=== PATIENT | female | born 1985 | race Caucasian/White ===

== ENCOUNTER 2017-04-29 07:25 | Inpatient (IN) | payer BC ==
[2017-04-29] MEDS ORDERED: Misoprostol TAB* 100 MCG ONE ×3 (09:05→14:19)
[2017-04-29 19:11] LABS: Hematocrit 34 % (35-47); Hemoglobin 11.5 g/dl (12.0-16.0); Mean Corpuscular HGB Conc 34 g/dl (31-36); Mean Corpuscular Hemoglobin 32 pg (27-31); Mean Corpuscular Volume 93 fL (80-97); Mean Platelet Volume 9 um3 (7.4-10.4); Red Blood Count 3.62 10^6/ul (4.0-5.4); Red Cell Distribution Width 13 % (10.5-15)
[2017-04-29] MEDS: Oxytocin in LR* 20 UNITS/1,000 ML BAG IVPB SCH (19:47)
[2017-04-30] MEDS: Oxytocin in LR* 20 UNITS/1,000 ML BAG IVPB SCH (08:19)
[2017-04-30] MEDS ORDERED: Oxytocin in LR* 20 UNITS/1,000 ML BAG IVPB SCH ×2 (09:00→15:00)
[2017-04-30] MEDS ORDERED: fentaNYL* 50 MCG/ML 2 ML VIAL (100 MCG VIAL) ONE (10:58)
[2017-04-30] MEDS: fentaNYL* 50 MCG/ML 2 ML VIAL (100 MCG VIAL) IV SLOW PU ONE ×2 (11:03→12:21)
[2017-04-30] MEDS ORDERED: fentaNYL* 50 MCG/ML 2 ML VIAL (100 MCG VIAL) IV SLOW PU ONE (12:20)
[2017-04-30] MEDS ORDERED: OBEPIDURAL* 250 ML ONE (13:36)
[2017-04-30] MEDS ORDERED: Phenylephrine IV* 40 MCG/ML 10 ML SYRINGE IV PUSH PRN (14:06)
[2017-04-30] MEDS ORDERED: EPHEDrine (Pressors)* 50 MG/ML VIAL IV PUSH PRN (14:06)
[2017-04-30] MEDS ORDERED: Famotidine TAB* 20 MG PO PRN (14:06)
[2017-04-30] MEDS ORDERED: Sodium Citrate/Citric Acid* 15 ML UDC PO PRN (14:06)
[2017-04-30] MEDS ORDERED: OBEPIDURAL* 250 ML EPIDURAL SCH (15:00)
[2017-05-01] MEDS ORDERED: Dibucaine 1% 28.35 GM TUBE PR PRN (02:58)
[2017-05-01] MEDS ORDERED: Misoprostol TAB* 200 MCG PR ONE (02:58)
[2017-05-01] MEDS ORDERED: Witch Hazel PAD* JAR TOPICAL PRN (02:58)
[2017-05-01] MEDS ORDERED: Acetaminophen TAB* 325 MG PO PRN (02:58)
[2017-05-01] MEDS ORDERED: Glycerin ADULT SUPP PR PRN (02:58)
[2017-05-01] MEDS ORDERED: Oxytocin in LR* 20 UNITS/1,000 ML BAG IVPB SCH (03:00)
[2017-05-01] MEDS ORDERED: Ammonia Inhalant* 1 EA AMP ONE ×2 (06:32→09:08)
[2017-05-01] MEDS: Ibuprofen TAB* 600 MG PO PRN ×4 (06:38→23:47)
[2017-05-01] MEDS ORDERED: Simethicone TAB* 80 MG TAB.CHEW PO SCH (08:30)
[2017-05-01] MEDS: Docusate CAP* 100 MG PO SCH ×2 (14:14→20:45)
--- NOTE | 2017-05-01 16:20 | PN ---
Progress Note - Progress Note Date of Service: 05/01/17 Note: Procedure note: Procedure: repair of 3rd degree perineal laceration. This patient's labor was managed by midwives. She had very slow progress as she needed induction postdates. The patient delivered vaginally. Ms. Miguel CNM contacted me after delivery of the infant and placenta to assist with the perineal repair. A thorough examination was performed including a rectal examination. On exam, the external anal sphincter was completely disrupted, but the internal sphincter was intact. There did not appear to be any rectal mucosa involved, but the skin had down to the anus. The area was cleaned with betadine. Additional 1% lidocaine, about 10cc, was injected. The anal sphincter ends were both identified and grasped with Allis clamps. An end-to-end sphincteroplasty with 2-0 Polysorb interrupted stitches was performed. There was also a right sulcus extension of the perineal lac and a laceration of the left introitus from the adjacent posterior vaginal mucosa. 3-0 Velosorb was used to restore the anatomy, reapproximate the 2nd degree perineal lac, and close the sulcus lac. Some of the perineal skin was also closed with 4-0 Velosorb interrupted stitches. There appeared to then be good reapproximation. Rectal exam was repeated to ensure this. Pt tolerated very well. EBL during laceration was about 100cc.
[2017-05-02 07:59] VITALS: BP 101/53
[2017-05-02] MEDS: Ibuprofen TAB* 600 MG PO PRN ×2 (08:02→14:09)
[2017-05-02] MEDS: Docusate CAP* 100 MG PO SCH ×2 (08:02→14:09)
[2017-05-02 08:40] LABS: Hematocrit 23 % (35-47); Hemoglobin 7.8 g/dl (12.0-16.0); Mean Corpuscular HGB Conc 34 g/dl (31-36); Mean Corpuscular Hemoglobin 32 pg (27-31); Mean Corpuscular Volume 94 fL (80-97); Mean Platelet Volume 9 um3 (7.4-10.4); Red Blood Count 2.49 10^6/ul (4.0-5.4); Red Cell Distribution Width 14 % (10.5-15); White Blood Count 12.1 10^3/ul (3.5-10.8)
[2017-05-02] MEDS ORDERED: Ferrous Gluconate TAB* 324 MG TAB PO SCH (09:00)
== END 2017-05-02 15:40 | disposition home or self-care (01) | DRG 560 ==
LOC: MCHOBOUT 07:25 → MCHOB 14:49
PROVIDERS: ADMIT Midwife; ATTEND Midwife
PROC: 10E0XZZ Delivery of Products of Conception, External Approach (ICD-10-PCS; principal; 2017-05-01)
PROC: 3E033VJ Introduction of Other Hormone into Peripheral Vein, Percutaneous Approach (ICD-10-PCS; 2017-05-01)
PROC: 3E0P7VZ Introduction of Hormone into Female Reproductive, Via Natural or Artificial Opening (ICD-10-PCS; 2017-05-01)
PROC: 0DQP0ZZ Repair Rectum, Open Approach (ICD-10-PCS; 2017-05-01)
DX: O48.0 Post-term pregnancy (principal); O70.3 Fourth degree perineal laceration during delivery; D64.9 Anemia, unspecified; O90.81 Anemia of the puerperium; O77.0 Labor and delivery complicated by meconium in amniotic fluid; Z37.0 Single live birth; Z3A.41 41 weeks gestation of pregnancy
CPT/HCPCS: 36415; 59200; 85025; 86850; 86900; 86901; A9270-GY; J3010; S0191

== ENCOUNTER 2018-11-06 11:10 | Emergency (ER) | payer BC ==
[2018-11-06 11:23] VITALS: BP 144/87
--- NOTE | 2018-11-06 11:54 | UC ---
Skin Complaint HPI - HPI Summary HPI Summary: Per fruit or nut farmer: "Pt woke up yesterday w/ "spider bite" on both arms- started to notice itchy rash develop on both arms and legs throughout the day. Last night started to notice swelling in both hands- worse this morning. Denies SOB and denies any trouble swallowing. Took 400mg ibuprofen at 0900. Was recently put on amoxicillin for dental infection on 10/26/18, took for about 4 days and stopped d/t GI bug- took another tab of amox this morning. " - History of Current Complaint Chief Complaint: UCSkin Time Seen by Provider: 11/06/18 11:53 Stated Complaint: SKIN CONCERN, HANDS SWELLING Hx Last Menstrual Period: "last month for 2 days" Pain Intensity: 0 - Allergy/Home Medications Allergies/Adverse Reactions: Allergies Allergy/AdvReac Type Severity Reaction Status Date / Time No Known Allergies Allergy Verified 11/06/18 11:23 Home Medications: Home Medications Amoxicillin PO (*) [Amoxicillin 875 MG (*)] 1 tab TID 11/06/18 [History Confirmed 11/06/18] Naproxen [Naproxen 500 mg tab] 500 mg PO DAILY 11/06/18 [History Confirmed 11/06] PMH/Surg Hx/FS Hx/Imm Hx - Surgical History Surgical History: None - Social History Alcohol Use: Occasionally Substance Use Type: None Smoking Status (MU): Never Smoked Tobacco - Immunization History Most Recent Influenza Vaccination: 02/2017 Most Recent Pneumonia Vaccination: none Physical Exam Vital Signs: Initial Vital Signs Temp 98.3 F 11/06/18 11:15 Pulse 84 11/06/18 11:15 Resp 16 11/06/18 11:15 BP 144/87 11/06/18 11:15 Pulse Ox 99 11/06/18 11:15 Discharge - Discharge Plan Referrals: No Primary Care Phys,NOPCP [Primary Care Provider] -
[2018-11-06] MEDS ORDERED: predniSONE TAB* 20 MG PO ONE (12:13)
--- NOTE | 2018-11-06 12:51 | UC ---
Skin Complaint HPI - HPI Summary HPI Summary: Pt has been on Amoxicillin for over one week for an abscessed tooth. Last evening, she started breaking out with an itchy rash and today her hands and fingers are swollen. She denies any difficulty breathing. She has wedding rings on which she does not want to cut off. The rings on her right hand, we can cut off if needed, according to the patient. - History of Current Complaint Chief Complaint: UCSkin Time Seen by Provider: 11/06/18 11:53 Stated Complaint: SKIN CONCERN, HANDS SWELLING Hx Obtained From: Patient Hx Last Menstrual Period: "last month for 2 days" ?: No Onset/Duration: Gradual Onset Timing: Constant Onset Severity: Mild Current Severity: Moderate Pain Intensity: 0 Location: Diffuse - hands, lower arms, upper legs Character: Swelling, Pruritus, Hives Aggravating Factor(s): Other - Pt has been on Amoxicillin Alleviating Factor(s): Nothing Associated Signs & Symptoms: Negative: Wheezing, Chest Pain, Hoarseness, Throat Tightening Related History: Other: - Possible reaction to Amoxicillin - Allergy/Home Medications Allergies/Adverse Reactions: Allergies Allergy/AdvReac Type Severity Reaction Status Date / Time No Known Allergies Allergy Verified 11/06/18 11:23 Home Medications: Home Medications Amoxicillin PO (*) [Amoxicillin 875 MG (*)] 1 tab TID 11/06/18 [History Confirmed 11/06/18] Naproxen [Naproxen 500 mg tab] 500 mg PO DAILY 11/06/18 [History Confirmed 11/06] PMH/Surg Hx/FS Hx/Imm Hx Previously Healthy: Yes - Surgical History Surgical History: None - Family History Known Family History: Positive: Non-Contributory - Social History Alcohol Use: Occasionally Substance Use Type: None Smoking Status (MU): Never Smoked Tobacco - Immunization History Most Recent Influenza Vaccination: 02/2017 Most Recent Pneumonia Vaccination: none Review of Systems All Other Systems Reviewed And Are Negative: Yes Skin: Positive: Rash - Small hives on hands and lower amms and upper legs with mild hand swelling. Is Patient Immunocompromised?: No Physical Exam Triage Information Reviewed: Yes Appearance: Well-Appearing, No Pain Distress, Well-Nourished Vital Signs: Initial Vital Signs Temp 98.3 F 11/06/18 11:15 Pulse 84 11/06/18 11:15 Resp 16 11/06/18 11:15 BP 144/87 11/06/18 11:15 Pulse Ox 99 11/06/18 11:15 Vital Signs Reviewed: Yes Eyes: Positive: Conjunctiva Clear ENT: Positive: Hearing grossly normal, Pharynx normal, TMs normal, Uvula midline Neck exam: Normal Neck: Positive: Supple, Nontender, No Lymphadenopathy Respiratory: Positive: Lungs clear, Normal breath sounds, No respiratory distress, No accessory muscle use Cardiovascular: Positive: RRR, No Murmur, Pulses Normal, Brisk Capillary Refill Abdomen Description: Positive: Nontender, No Organomegaly, Soft Bowel Sounds: Positive: Present Musculoskeletal: Positive: Strength Intact, ROM Intact, Edema @ - All fingers with edema, however full ROM, good periph pulses, neurosensation, cap refill, normal color Neurological: Positive: Alert, Muscle Tone Normal Psychological Exam: Normal Skin Exam: Other - See above Course/Dx - Course Course Of Treatment: Rings on right hand cut off per pt's permission, left rings are able to move. Fingers are warm, pink, with good sensation, no numbness. Pt given Prednisone 60 mg here to continue taper. Go to ER if worsening symptoms...discussed with pt. - Diagnoses Provider Diagnosis: Allergic reaction caused by a drug Discharge - Sign-Out/Discharge Documenting (check all that apply): Patient Departure All imaging exams completed and their final reports reviewed: No Studies - Discharge Plan Condition: Fair Disposition: HOME Prescriptions: predniSONE [Prednisone 20 MG TAB] 20 mg PO DAILY 8 Days #15 tablet Patient Education Materials: General Allergic Reaction (ED) Referrals: [facility] [Outside] No Primary Care Phys,NOPCP [Primary Care Provider] - Additional Instructions: Go to the ER if you develop wheezing, difficulty breathing, facial swelling, throat closing. Keep your hands elevated as much as possible. Stop the Amoxicillin, take the Prednisone with food. If your finger with the rings on gets numb, cold, purple/blue, go to your local fire department and have the rings cut off or you may return here. - Billing Disposition and Condition Condition: FAIR Disposition: Home
== END 2018-11-06 13:00 | disposition home or self-care (01) ==
LOC: UCCORT 11:10
DX: M79.89 Other specified soft tissue disorders (principal); L27.0 Generalized skin eruption due to drugs and medicaments taken internally; T36.0X5A Adverse effect of penicillins, initial encounter; Y92.9 Unspecified place or not applicable
CPT/HCPCS: 99213; G0463; J7512